=== PATIENT | male | born 1990 | race Caucasian/White ===

== ENCOUNTER 2020-09-06 15:13 | Emergency (ER) | payer SELFPAY ==
[~2020-09-06] VITALS: Ht 172.7 cm; Wt 68.1 kg
[2020-09-06] MEDS ORDERED: IV NORMAL SALINE 1,000ML 1,000 ML IV ONE (15:45)
--- NOTE | 2020-09-06 15:56 | PHYS DOC ---
Past History Past Medical History: Anxiety, Depression, Hepatitis (C), Sciatica Past Surgical History: No Surgical History Smoking: Non-smoker Alcohol Use: Occasionally Drug Use: Heroin, Marijuana, Methamphetamine, Opiates General Adult EDM: Chief Complaint: PAIN ON URINATION HPI: HPI: 30-year-old male presents with report of pain with urination. Patient reports over the last 2 days he has had some dark urine which appears "brown ". Patient reports he has been "googling his symptoms ". Patient reports history of known hepatitis C. Patient is a IV drug abuser. Reports concern for possible HIV given he shared a needle with someone who was positive approximately 1 month ago. Patient denies recent sexual activity. Denies penile discharge. Denies testicular pain. Review of Systems: Review of Systems: Constitutional: Denies fever or chills Eyes: Denies redness or eye pain HENT: Denies nasal congestion or sore throat Respiratory: Denies cough or shortness of breath Cardiovascular: Denies chest pain or palpitations GI: Denies abdominal pain, nausea, or vomiting : Reports dysuria and discolored urine Musculoskeletal: Denies back pain or joint pain Integument: Denies rash or skin lesions Neurologic: Denies headache, focal weakness or sensory changes Complete systems were reviewed and found to be within normal limits, except as documented in this note. Current Medications: Current Meds: Current Medications Medications (Trade) Dose Ordered Sig/Earl Start Time Stop Time Status Last Admin Dose Admin Sodium Chloride 1,000 ml @ 1,000 mls/hr 1X ONCE 09/06/20 15:45 09/06/20 16:44 09/06/20 15:54 1,000 MLS/HR Allergies: Allergies: Allergies Coded Allergies Type Severity Reaction Last Updated Verified No Known Drug Allergies 09/06/20 No Physical Exam: PE: Constitutional: Well developed, well nourished, no acute distress, non-toxic appearance HENT: Normocephalic, atraumatic Eyes: Conjunctiva normal, no discharge Neck: Normal range of motion, supple Lungs & Thorax: No respiratory distress, equal chest rise and fall Abdomen: Soft, no tenderness : External genitalia normal, circumcised male, testicles nontender bilatera lly, cremasteric reflex intact bilaterally, no penile discharge noted Skin: Warm, dry, no erythema, no rash Back: No tenderness, no CVA tenderness Extremities: No tenderness, ROM intact, no edema Neurologic: Alert and oriented X 3, normal motor function, normal sensory function, no focal deficits noted Psychologic: Affect anxious , judgment normal Current Patient Data: Vital Signs: Vital Signs Date Time Temp Pulse Resp B/P (MAP) Pulse Ox O2 Delivery O2 Flow Rate FiO2 09/06/20 15:38 98.5 79 12 148/109 (122) 98 Room Air EKG: EKG: [] Radiology/Procedures: Radiology/Procedures: [] Heart Score: C/O Chest Pain: N/A Course & Med Decision Making: Course & Med Decision Making Pertinent Lab studies reviewed. (See chart for details) Patient presents with report of painful urination and dark urine. Patient does have a history of hepatitis C. Patient reports concern for HIV as he recently shared a IV needle with someone that was positive. Patient denies recent sexual activity. Physical exam unremarkable. UA obtained without signs of infection. Blood work also obtained without significant finding. Some mild LFT elevation noted. Urine chlamydia/gonorrhea cultures pending. Patient denies concern for possible STD and therefore declines empiric antibiotic therapy. Patient advised we do not test for HIV here in the emergency department and would need to follow with clinic and/or health department for further evaluation and testing. Patient stable for discharge with outpatient follow-up with PCP. Discussed findings and plan with patient, who acknowledges understanding and agreement. Jamaal Disclaimer: Jamaal Disclaimer: This electronic medical record was generated, in whole or in part, using a voice recognition dictation system. Departure Departure: Impression: Primary Impression: Dysuria Additional Impressions: Hx of hepatitis C Hx of drug abuse Disposition: HOME / SELF CARE / HOMELESS Condition: STABLE Referrals: PCP,NO (PCP) Patient Instructions: Alcohol and Drug Addiction, Finding Treatment, Dysuria, Hepatitis C, [id number] Additional Instructions: Increase fluid hydration. Please discontinue drug use. Please call [facility] at to seek help for your mental health and/or drug/alcohol abuse. Please follow with health clinic regarding further testing and reevaluation of your laboratory data. Your liver enzymes are very slightly elevated today and need further monitoring/retesting LAINA JEAN DO Sep 06, 2020 15:56
[2020-09-06 16:25] LABS: CALCIUM 8.7 mg/dL (8.5-10.1); CREATININE 0.9 mg/dL (0.7-1.3); GFR 100.5; POTASSIUM 3.7 mmol/L (3.5-5.1)
[2020-09-06 16:30] LABS: BASO % 1 % (0-3); EOS # 0.1 x10^3/uL (0.0-0.7); EOS % 1 % (0-3); HEMATOCRIT 46.1 % (39.0-53.0); HEMOGLOBIN 16.3 g/dL (13.0-17.5); LYMPH # 3.6 x10^3/uL (1.0-4.8); LYMPH % 55 % (24-48); MEAN CORPUSCULAR HEMOGLOBIN 31 pg (25-35); MEAN CORPUSCULAR HGB CONC 35 g/dL (31-37); MEAN CORPUSCULAR VOLUME 87 fL (79-100); MONO # 0.4 x10^3/uL (0.0-1.1); MONO % 6 % (0-9); NEUT # 2.4 x10^3uL (1.8-7.7); NEUT % 37 % (31-73); PLATELET COUNT 244 x10^3/uL (140-400); RED BLOOD COUNT 5.31 x10^6/uL (4.30-5.70); RED CELL DISTRIBUTION WIDTH 13.2 % (11.5-14.5); WHITE BLOOD COUNT 6.4 x10^3/uL (4.0-11.0)
[2020-09-06 16:31] LABS: ALBUMIN 4.8 g/dL (3.4-5.0); ALBUMIN/GLOBULIN RATIO 1.2 (1.0-1.7); MAGNESIUM 2.2 mg/dL (1.8-2.4); TOTAL BILIRUBIN 0.7 mg/dL (0.2-1.0); TOTAL PROTEIN 8.9 g/dL (6.4-8.2)
[2020-09-06 16:40] LABS: BILIRUBIN,URINE NEG (NEG); CLARITY,URINE CLEAR; COLOR,URINE YELLOW; GLUCOSE,URINE NEG (NEG); NITRITE,URINE NEG (NEG); UROBILINOGEN,URINE 0.2 mg/dL (0.2 mg/dL)
[2020-09-06 16:41] LABS: BACTERIA,URINE 0 /HPF (0-FEW); RBC,URINE 0 /HPF (0-2); WBC,URINE OCC /HPF (0-4)
[2020-09-06 16:42] LABS: SQUAMOUS EPITHELIAL CELL,UR OCC /LPF
[2020-09-06 17:03] VITALS: BP 112/64
== END 2020-09-06 17:00 | disposition home or self-care (01) ==
LOC: ER 15:13
DX: R30.0 Dysuria (principal); F41.9 Anxiety disorder, unspecified; F32.9 Major depressive disorder, single episode, unspecified; Z86.19 Personal history of other infectious and parasitic diseases
CPT/HCPCS: 36415; 80053; 81001; 83735; 85025; 87491; 87591; 96360; 99283; J7030